=== PATIENT | male | born 1940 | race Caucasian/White ===

== ENCOUNTER → 2017-07-21 | Outpatient (REF) | payer MEDICARE, BC ==
[2017-07-21 21:32] LABS: ALBUMIN 3.9 GM/DL (3.2-5.2); ALBUMIN/GLOBULIN RATIO 1.22 (1.00-1.93); BILIRUBIN,TOTAL 1.4 MG/DL (0.2-1.0); CALCIUM LEVEL 9.2 MG/DL (8.8-10.2); CREATININE FOR GFR 1.31 MG/DL (0.70-1.30); GLOMERULAR FILTRATION RATE 56.3 (>42); POTASSIUM SERUM 4.4 MEQ/L (3.5-5.1); TOTAL PROTEIN 7.1 GM/DL (6.4-8.2); URIC ACID 7.3 MG/DL (3.5-7.2)
== END ==
LOC: M SFHCCLAY 10:25
PROVIDERS: ATTEND Family Medicine
DX: M10.9 Gout, unspecified (principal); I10 Essential (primary) hypertension; E78.2 Mixed hyperlipidemia; Z23 Encounter for immunization
CPT/HCPCS: 80053; 80061; 84550; 90662; G0008; G0463

== ENCOUNTER → 2018-03-16 | Outpatient (REF) | payer MEDICARE, BC ==
[2018-03-16 16:36] LABS: APPEARANCE, URINE TURBID (CLEAR); BACTERIA, URINE AUTO 1+ (NEGATIVE); BILIRUBIN, URINE AUTO NEGATIVE (NEGATIVE); BLOOD, URINE BLOOD NEGATIVE (NEGATIVE); COLOR, URINE AMBER (YELLOW); GLUCOSE, URINE (UA) AUTO NEGATIVE (NEGATIVE); KETONE, URINE AUTO NEGATIVE (NEGATIVE); LEUKOCYTE ESTERASE, URINE AUTO 1+ (NEGATIVE); MUCUS, URINE SMALL (NEGATIVE); NITRITE, URINE AUTO NEGATIVE (NEGATIVE); PROTEIN, URINE AUTO NEGATIVE (NEGATIVE); RBC, URINE AUTO 2 /HPF (0-3); SQUAMOUS EPITHELIAL CELL UR AU 1 /HPF (0-6); UROBILINOGEN, URINE AUTO 0.2 mg/dL (0.0-2.0); WBC, URINE AUTO 6 /HPF (0-3)
== END ==
LOC: M SFHCCLAY 09:45
DX: N30.00 Acute cystitis without hematuria (principal)
CPT/HCPCS: 81001

== ENCOUNTER → 2018-07-27 | Outpatient (REF) | payer MEDICARE, BC ==
[2018-07-27 17:21] LABS: ALBUMIN 3.9 GM/DL (3.2-5.2); ALBUMIN/GLOBULIN RATIO 1.05 (1.00-1.93); ALKALINE PHOSPHATASE 85 U/L (45-117); ALT/SGPT 28 U/L (12-78); ANION GAP 6 MEQ/L (8-16); AST/SGOT 33 U/L (7-37); BILIRUBIN,TOTAL 1.4 MG/DL (0.2-1.0); BLOOD UREA NITROGEN 16 MG/DL (7-18); CALCIUM LEVEL 9.2 MG/DL (8.8-10.2); CARBON DIOXIDE LEVEL 26 MEQ/L (21-32); CHLORIDE LEVEL 108 MEQ/L (98-107); CHOLESTEROL LEVEL 211 MG/DL (<200); CHOLESTEROL RISK RATIO 4.137 (<5); CREATININE FOR GFR 1.27 MG/DL (0.70-1.30); GLOMERULAR FILTRATION RATE 58.2 (>42); GLUCOSE, FASTING 96 MG/DL (70-100); HDL CHOLESTEROL 51 MG/DL (>40); LDL CHOLESTEROL 115 MG/DL (<100); NON-HDL-C 160 MG/DL; POTASSIUM SERUM 4.6 MEQ/L (3.5-5.1); SODIUM LEVEL 140 MEQ/L (136-145); TOTAL PROTEIN 7.6 GM/DL (6.4-8.2); TRIGLYCERIDES LEVEL 226 MG/DL (<150); URIC ACID 7.2 MG/DL (3.5-7.2)
== END ==
LOC: M SFHCCLAY 11:28
DX: I10 Essential (primary) hypertension (principal); E78.2 Mixed hyperlipidemia; M10.9 Gout, unspecified; Z23 Encounter for immunization
CPT/HCPCS: 84550

== ENCOUNTER → 2019-08-08 | Outpatient (REF) | payer MEDICARE, BC ==
[2019-08-08 12:37] LABS: ALBUMIN 3.8 GM/DL (3.2-5.2); BILIRUBIN,TOTAL 1.7 MG/DL (0.2-1.0); CHOLESTEROL RISK RATIO 3.278 (<5); CREATININE FOR GFR 1.31 MG/DL (0.70-1.30); POTASSIUM SERUM 4.1 MEQ/L (3.5-5.1); TOTAL PROTEIN 7.3 GM/DL (6.4-8.2)
== END ==
LOC: M SFHCCLAY 08:41
PROVIDERS: ATTEND Family Medicine
DX: I10 Essential (primary) hypertension (principal); E78.2 Mixed hyperlipidemia; M10.9 Gout, unspecified

== ENCOUNTER → 2020-03-20 | Outpatient (CLI) | payer MEDICARE, BC ==
--- NOTE | 2020-03-20 12:13 | REP ---
Clinical: Abdominal pain. Technique: Real time pham scale ultrasound examination using curved array transducer. Findings: The liver demonstrates mild fatty infiltration without focal hepatic lesion identified. The pancreas is incompletely evaluated due to interposed bowel gas but visualized portions appear normal. Evidence of prior cholecystectomy. No biliary ductal dilatation is appreciated and the common bile duct measures 4.4 mm diameter. The right kidney measures 11.7 x 4.6 x 5.5 cm without hydronephrosis but demonstrates few scattered cysts measuring up to 1.9 cm. No ascites in the visualized right upper quadrant. Impression: 1. Hepatic steatosis. 2. Renal cysts.
== END ==
LOC: M PLAIMG 09:47
PROVIDERS: ATTEND Family Medicine
DX: R10.9 Unspecified abdominal pain (principal); K76.0 Fatty (change of) liver, not elsewhere classified; N28.1 Cyst of kidney, acquired

== ENCOUNTER → 2020-03-20 | Outpatient (CLI) | payer MEDICARE, BC ==
--- NOTE | 2020-03-20 10:54 | REPPI ---
Clinical: Lower chest and abdominal pain. Comparison: 09/14/2005. Findings: Mediastinum and cardiac silhouette are stable. Lung chatman demonstrate chronic-appearing interstitial changes. No focal consolidation, effusion, or pneumothorax. No evidence for free air below diaphragm. Skeletal structures are intact. Impression: Chronic stable changes. No acute cardiopulmonary process appreciated. Electronically Signed by Pk Calderon MD 03/20/2020 10:46 A
== END ==
LOC: M PLAIMG 10:37
PROVIDERS: ATTEND Family Medicine
DX: R10.9 Unspecified abdominal pain (principal)

== ENCOUNTER → 2020-10-08 | Outpatient (REF) | payer MEDICARE, BC ==
[2020-10-08 15:50] LABS: HEMATOCRIT 43.7 % (42.0-52.0); HEMOGLOBIN 13.9 g/dl (13.5-17.5); MEAN CORPUSCULAR HEMOGLOBIN 28.7 pg (27.0-33.0); MEAN CORPUSCULAR HGB CONC 31.8 g/dl (32.0-36.5); MEAN CORPUSCULAR VOLUME 90.3 fl (80.0-96.0); PLATELET COUNT, AUTOMATED 210 10^3/uL (150-450); RED BLOOD COUNT 4.84 10^6/uL (4.30-6.10); WHITE BLOOD COUNT 5.9 10^3/uL (4.0-10.0)
[2020-10-08 16:24] LABS: BILIRUBIN,TOTAL 1.4 MG/DL (0.2-1.0); CALCIUM LEVEL 9.8 MG/DL (8.8-10.2); CHOLESTEROL RISK RATIO 4.568 (<5); CREATININE FOR GFR 1.29 MG/DL (0.70-1.30); GLOMERULAR FILTRATION RATE 56.9 (>35); POTASSIUM SERUM 4.4 MEQ/L (3.5-5.1); TOTAL PROTEIN 7.4 GM/DL (6.4-8.2); URIC ACID 6.7 MG/DL (3.5-7.2)
== END ==
LOC: M SFHCCLAY 13:41
PROVIDERS: ATTEND Family Medicine
DX: E78.2 Mixed hyperlipidemia (principal); M10.9 Gout, unspecified; I10 Essential (primary) hypertension
CPT/HCPCS: 80053; 80061; 84550; 85027; G0463

== ENCOUNTER → 2021-06-06 | Outpatient (REF) | payer MEDICARE, BC ==
[2021-06-06 17:19] LABS: CHOLESTEROL RISK RATIO 2.457 (<5)
== END ==
LOC: M SFHCCLAY 10:07
PROVIDERS: ATTEND Family Medicine
DX: E78.2 Mixed hyperlipidemia (principal)

== ENCOUNTER 2021-11-14 04:08 | Inpatient (IN) | payer MEDICARE, BC ==
[~2021-11-14] VITALS: Ht 182.9 cm; Wt 89.9 kg
[2021-11-14 04:46] LABS: BASO % 0.2 % (0.0-1.0); EOS % 0.2 % (0.0-3.0); HEMATOCRIT 33.9 % (42.0-52.0); HEMOGLOBIN 11.1 g/dl (13.5-17.5); LYMPH # 0.9 10^3/uL (1.5-5.0); LYMPH % 7.1 % (24.0-44.0); MEAN CORPUSCULAR HEMOGLOBIN 28.2 pg (27.0-33.0); MEAN CORPUSCULAR HGB CONC 32.7 g/dl (32.0-36.5); MONO % 8.2 % (2.0-8.0); NEUTROPHILS # 10.3 10^3/uL (1.5-8.5); NEUTROPHILS % 83.4 % (36.0-66.0); PLATELET COUNT, AUTOMATED 260 10^3/uL (150-450); RED BLOOD COUNT 3.94 10^6/uL (4.30-6.10); WHITE BLOOD COUNT 12.4 10^3/uL (4.0-10.0)
[2021-11-14 05:08] LABS: MB/CK RELATIVE INDEX 1.34 (< OR =4)
[2021-11-14 05:13] LABS: ALBUMIN 2.4 GM/DL (3.2-5.2); ALT/SGPT 46 U/L (12-78); BILIRUBIN,DIRECT 0.5 MG/DL (0.0-0.2); BILIRUBIN,TOTAL 2.2 MG/DL (0.2-1.0); BLOOD UREA NITROGEN 14 MG/DL (7-18); CALCIUM LEVEL 7.8 MG/DL (8.8-10.2); CARBON DIOXIDE LEVEL 22 MEQ/L (21-32); CHLORIDE LEVEL 110 MEQ/L (98-107); CREATININE FOR GFR 1.22 MG/DL (0.70-1.30); FREE T4 1.69 NG/DL (0.76-1.46); GLOMERULAR FILTRATION RATE > 60.0 (>35); GLUCOSE, FASTING 123 MG/DL (70-100); LIPASE 693 U/L (73-393); POTASSIUM SERUM 3.9 MEQ/L (3.5-5.1); SODIUM LEVEL 141 MEQ/L (136-145); TOTAL PROTEIN 7.2 GM/DL (6.4-8.2)
[2021-11-14] MEDS ORDERED: ISOVUE-370 76% 100ML VIAL As Ordered ONE ×2 (06:26→09:38)
[2021-11-14 06:36] LABS: MB/CK RELATIVE INDEX 1.55 (< OR =4)
[2021-11-14 06:48] LABS: BILIRUBIN, URINE MANUAL NEGATIVE (NEGATIVE); GLUCOSE, URINE (UA) MANUAL NEGATIVE (NEGATIVE); KETONE, URINE MANUAL NEGATIVE (NEGATIVE); UROBILINOGEN, URINE MANUAL NORMAL (NORMAL)
[2021-11-14 07:03] LABS: BACTERIA, URINE LARGE AMOUNT; RBC, URINE TNTC /hpf (0-3); SQUAMOUS EPITHELIAL CELL URINE LARGE AMOUNT /hpf (SMALL AMT)
[2021-11-14] MEDS ORDERED: cefTRIAXone SOD 2 GM in D5W MINI-BAG PLUS 50 ML IV ONE (07:25)
[2021-11-14 08:06] LABS: BILIRUBIN, URINE MANUAL NEGATIVE (NEGATIVE); GLUCOSE, URINE (UA) MANUAL NEGATIVE (NEGATIVE); KETONE, URINE MANUAL NEGATIVE (NEGATIVE); UROBILINOGEN, URINE MANUAL NORMAL (NORMAL)
[2021-11-14] MEDS ORDERED: LIDO1PAD TOP (08:08)
[2021-11-14] MEDS ORDERED: FINA5TAB2 PO (08:08)
[2021-11-14] MEDS ORDERED: LISI5TAB11 PO (08:08)
[2021-11-14] MEDS ORDERED: ATOR40TA75 PO (08:08)
[2021-11-14] MEDS ORDERED: CEPH500C PO (08:08)
[2021-11-14] MEDS ORDERED: ALLO300T2 PO (08:09)
[2021-11-14] MEDS ORDERED: HOME MED LIST COMPLETE! XX SCH (08:10)
[2021-11-14 08:19] LABS: BACTERIA, URINE LARGE AMOUNT; RBC, URINE TNTC /hpf (0-3); SQUAMOUS EPITHELIAL CELL URINE SMALL AMOUNT /hpf (SMALL AMT)
[2021-11-14] MEDS ORDERED: hydrALAZINE 20MG/ML 1ML VIAL (J0360 PER 20MG) IV PRN (08:35)
[2021-11-14] MEDS: LIDOCAINE 5% (LIDODERM) PATCH TOP SCH (10:34)
[2021-11-14 16:36] LABS: INR 1.12; PROTHROMBIN TIME 14.8 SECONDS (12.7-14.5)
[2021-11-14 16:37] LABS: PARTIAL THROMBOPLASTIN TIME 34.9 SECONDS (25.9-37.0)
[2021-11-14] MEDS: allopurinoL 300 MG TAB PO SCH (21:00)
[2021-11-14] MEDS: ATORVASTATIN 20 MG TAB PO SCH (21:00)
[2021-11-14] MEDS: **NOTE PATIENT COMMENT** MISC XX SCH (21:00)
[2021-11-14] MEDS: FINASTERIDE 5 MG TAB PO SCH (21:01)
[2021-11-15 07:12] LABS: HEMATOCRIT 33.8 % (42.0-52.0); MEAN CORPUSCULAR HEMOGLOBIN 28.4 pg (27.0-33.0); MEAN CORPUSCULAR HGB CONC 32.5 g/dl (32.0-36.5); MEAN CORPUSCULAR VOLUME 87.3 fl (80.0-96.0); PLATELET COUNT, AUTOMATED 271 10^3/uL (150-450); RED BLOOD COUNT 3.87 10^6/uL (4.30-6.10); WHITE BLOOD COUNT 7.8 10^3/uL (4.0-10.0)
[2021-11-15 07:28] LABS: BLOOD UREA NITROGEN 15 MG/DL (7-18); CALCIUM LEVEL 7.8 MG/DL (8.8-10.2); CARBON DIOXIDE LEVEL 24 MEQ/L (21-32); CHLORIDE LEVEL 110 MEQ/L (98-107); CREATININE FOR GFR 1.07 MG/DL (0.70-1.30); GLOMERULAR FILTRATION RATE > 60.0 (>35); GLUCOSE, FASTING 112 MG/DL (70-100); POTASSIUM SERUM 3.4 MEQ/L (3.5-5.1); SODIUM LEVEL 140 MEQ/L (136-145)
[2021-11-15] MEDS: **NOTE PATIENT COMMENT** MISC XX SCH (07:37)
[2021-11-15] MEDS: LIDOCAINE 5% (LIDODERM) PATCH TOP SCH (10:32)
[2021-11-15] MEDS: ENOXAPARIN 40MG/0.4ML SYRINGE (J1650 PER 10MG) SC SCH (10:34)
[2021-11-15] MEDS: cefTRIAXone SOD 1 GM in D5W MINI-BAG PLUS 50 ML IV SCH (10:34)
[2021-11-15] MEDS: ATORVASTATIN 20 MG TAB PO SCH (21:15)
[2021-11-15] MEDS: FINASTERIDE 5 MG TAB PO SCH (21:15)
[2021-11-15] MEDS: allopurinoL 300 MG TAB PO SCH (21:16)
[2021-11-15] MEDS: lisinopriL 5 MG TAB PO SCH (21:16)
[2021-11-16] VITALS (8 sets, daily range): BP systolic 129–145; BP diastolic 65–94
[2021-11-16 06:05] LABS: HEMATOCRIT 35.5 % (42.0-52.0); MEAN CORPUSCULAR HEMOGLOBIN 28.1 pg (27.0-33.0); MEAN CORPUSCULAR VOLUME 90.8 fl (80.0-96.0); PLATELET COUNT, AUTOMATED 308 10^3/uL (150-450); RED BLOOD COUNT 3.91 10^6/uL (4.30-6.10); WHITE BLOOD COUNT 7.8 10^3/uL (4.0-10.0)
[2021-11-16 06:25] LABS: BLOOD UREA NITROGEN 16 MG/DL (7-18); CALCIUM LEVEL 8.3 MG/DL (8.8-10.2); CARBON DIOXIDE LEVEL 20 MEQ/L (21-32); CHLORIDE LEVEL 108 MEQ/L (98-107); CREATININE FOR GFR 1.21 MG/DL (0.70-1.30); GLOMERULAR FILTRATION RATE > 60.0 (>35); GLUCOSE, FASTING 131 MG/DL (70-100); SODIUM LEVEL 136 MEQ/L (136-145)
[2021-11-16] MEDS: ACETAMINOPHEN TAB 650MG DOSE (2X325MG) PO PRN ×2 (06:45→16:44)
[2021-11-16] MEDS ORDERED: POTASSIUM CHLORIDE 10MEQ SR TABLET PO ONE ×2 (07:20→12:00)
[2021-11-16] MEDS: LIDOCAINE 5% (LIDODERM) PATCH TOP SCH (07:59)
[2021-11-16] MEDS: ENOXAPARIN 40MG/0.4ML SYRINGE (J1650 PER 10MG) SC SCH (07:59)
[2021-11-16 08:17] LABS: MAGNESIUM LEVEL 2.1 MG/DL (1.8-2.4)
[2021-11-16] MEDS: cefTRIAXone SOD 1 GM in D5W MINI-BAG PLUS 50 ML IV SCH (10:28)
[2021-11-16] MEDS ORDERED: traMADol 50 MG TAB PO PRN (11:40)
[2021-11-16 18:17] LABS: CALCIUM LEVEL 7.9 MG/DL (8.8-10.2); CREATININE FOR GFR 1.23 MG/DL (0.70-1.30); POTASSIUM SERUM 3.7 MEQ/L (3.5-5.1)
[2021-11-16] MEDS: allopurinoL 300 MG TAB PO SCH (20:18)
[2021-11-16] MEDS: lisinopriL 5 MG TAB PO SCH (20:18)
[2021-11-16] MEDS: FINASTERIDE 5 MG TAB PO SCH (20:19)
[2021-11-16] MEDS: ATORVASTATIN 20 MG TAB PO SCH (20:19)
[2021-11-17] MEDS: ACETAMINOPHEN TAB 650MG DOSE (2X325MG) PO PRN (01:10)
[2021-11-17 04:00] VITALS: BP 121/84
[2021-11-17 06:04] LABS: HEMATOCRIT 31.1 % (42.0-52.0); HEMOGLOBIN 9.9 g/dl (13.5-17.5); MEAN CORPUSCULAR HEMOGLOBIN 28.4 pg (27.0-33.0); MEAN CORPUSCULAR HGB CONC 31.8 g/dl (32.0-36.5); MEAN CORPUSCULAR VOLUME 89.1 fl (80.0-96.0); PLATELET COUNT, AUTOMATED 346 10^3/uL (150-450); RED BLOOD COUNT 3.49 10^6/uL (4.30-6.10); WHITE BLOOD COUNT 5.8 10^3/uL (4.0-10.0)
[2021-11-17 06:15] LABS: BLOOD UREA NITROGEN 16 MG/DL (7-18); CARBON DIOXIDE LEVEL 20 MEQ/L (21-32); CHLORIDE LEVEL 114 MEQ/L (98-107); CREATININE FOR GFR 1.08 MG/DL (0.70-1.30); GLOMERULAR FILTRATION RATE > 60.0 (>35); GLUCOSE, FASTING 108 MG/DL (70-100); POTASSIUM SERUM 3.8 MEQ/L (3.5-5.1); SODIUM LEVEL 139 MEQ/L (136-145)
[2021-11-17 07:31] VITALS: BP 143/75
[2021-11-17] MEDS: ENOXAPARIN 40MG/0.4ML SYRINGE (J1650 PER 10MG) SC SCH (08:11)
[2021-11-17] MEDS: LIDOCAINE 5% (LIDODERM) PATCH TOP SCH (08:11)
[2021-11-17] MEDS: cefTRIAXone SOD 1 GM in D5W MINI-BAG PLUS 50 ML IV SCH (10:36)
[2021-11-17] MEDS ORDERED: CEFD300C41 PO (10:42)
[2021-11-17] MEDS ORDERED: ACET650T15 PO (10:42)
[2021-11-17 12:00] VITALS: BP 135/78
== END 2021-11-17 13:18 | disposition home health service (06) | DRG 872 ==
LOC: M ED 04:08 → M ED INP 08:27 → ENRESERV 11-15 13:31 → M PCU 11-15 15:12
PROVIDERS: ADMIT Internal Medicine; ATTEND Internal Medicine
DX: A41.9 Sepsis, unspecified organism (principal); N10 Acute pyelonephritis; I10 Essential (primary) hypertension; E78.5 Hyperlipidemia, unspecified; M10.9 Gout, unspecified; Z90.49 Acquired absence of other specified parts of digestive tract; Z98.49 Cataract extraction status, unspecified eye; Z79.899 Other long term (current) drug therapy; Z20.822 Contact with and (suspected) exposure to COVID-19; Z96.0 Presence of urogenital implants

== ENCOUNTER → 2021-11-19 | Outpatient (REF) | payer MEDICARE, BC ==
[~2021-11-19] MED LIST: ACET650T15 PO; ALLO300T2 PO; ATOR40TA75 PO; CEFD300C41 PO; CEPH500C PO; FINA5TAB2 PO; LIDO1PAD TOP; LISI5TAB11 PO
[2021-11-19 17:08] LABS: BASO # 0.1 10^3/uL (0.0-0.2); EOS # 0.3 10^3/uL (0.0-0.5); EOS % 5.2 % (0.0-3.0); HEMATOCRIT 36.1 % (42.0-52.0); HEMOGLOBIN 11.3 g/dl (13.5-17.5); LYMPH # 1.1 10^3/uL (1.5-5.0); LYMPH % 20.7 % (24.0-44.0); MEAN CORPUSCULAR HEMOGLOBIN 27.9 pg (27.0-33.0); MEAN CORPUSCULAR HGB CONC 31.3 g/dl (32.0-36.5); MEAN CORPUSCULAR VOLUME 89.1 fl (80.0-96.0); MONO # 0.5 10^3/uL (0.0-0.8); MONO % 9.9 % (2.0-8.0); NEUTROPHILS # 3.3 10^3/uL (1.5-8.5); NEUTROPHILS % 62.6 % (36.0-66.0); PLATELET COUNT, AUTOMATED 458 10^3/uL (150-450); RED BLOOD COUNT 4.05 10^6/uL (4.30-6.10); WHITE BLOOD COUNT 5.2 10^3/uL (4.0-10.0)
[2021-11-19 17:12] LABS: BLOOD UREA NITROGEN 15 MG/DL (7-18); CALCIUM LEVEL 8.7 MG/DL (8.8-10.2); CARBON DIOXIDE LEVEL 23 MEQ/L (21-32); CHLORIDE LEVEL 113 MEQ/L (98-107); CREATININE FOR GFR 1.13 MG/DL (0.70-1.30); GLOMERULAR FILTRATION RATE > 60.0 (>35); GLUCOSE, FASTING 128 MG/DL (70-100); POTASSIUM SERUM 5.4 MEQ/L (3.5-5.1); SODIUM LEVEL 139 MEQ/L (136-145)
== END ==
LOC: M SFHCCLAY 11:24
PROVIDERS: ATTEND Family Medicine
DX: I11.0 Hypertensive heart disease with heart failure (principal); Z96.0 Presence of urogenital implants

== ENCOUNTER → 2021-11-28 | Outpatient (REF) | payer MEDICARE, BC ==
[~2021-11-28] MED LIST changes: +BACT800T5 PO; +LEVO250T3 PO
[2021-11-28 17:41] LABS: APPEARANCE, URINE CLOUDY (CLEAR); BACTERIA, URINE AUTO 1+ (NEGATIVE); BILIRUBIN, URINE AUTO NEGATIVE (NEGATIVE); BLOOD, URINE BLOOD 2+ (NEGATIVE); COLOR, URINE YELLOW (YELLOW); GLUCOSE, URINE (UA) AUTO NEGATIVE (NEGATIVE); KETONE, URINE AUTO NEGATIVE (NEGATIVE); LEUKOCYTE ESTERASE, URINE AUTO 2+ (NEGATIVE); MUCUS, URINE SMALL (NEGATIVE); NITRITE, URINE AUTO NEGATIVE (NEGATIVE); PROTEIN, URINE AUTO 2+ mg/dL (NEGATIVE); RBC, URINE AUTO 33 /HPF (0-3); SPECIFIC GRAVITY URINE AUTO 1.018 (1.002-1.035); SQUAMOUS EPITHELIAL CELL UR AU 3 /HPF (0-6); UROBILINOGEN, URINE AUTO 0.2 mg/dL (0.0-2.0); WBC, URINE AUTO 38 /HPF (0-3)
== END ==
LOC: M SMT 16:32
PROVIDERS: ATTEND Physician Assistant
DX: N20.1 Calculus of ureter (principal)

== ENCOUNTER → 2021-12-08 | Outpatient (REF) | payer MEDICARE, BC ==
[~2021-12-08] MED LIST changes: -BACT800T5 PO; -LEVO250T3 PO
[2021-12-08 16:12] LABS: BASO # 0.1 10^3/uL (0.0-0.2); BASO % 0.6 % (0.0-1.0); EOS # 0.2 10^3/uL (0.0-0.5); EOS % 2.6 % (0.0-3.0); HEMOGLOBIN 11.6 g/dl (13.5-17.5); LYMPH # 2.2 10^3/uL (1.5-5.0); LYMPH % 27.5 % (24.0-44.0); MEAN CORPUSCULAR HGB CONC 31.4 g/dl (32.0-36.5); MEAN CORPUSCULAR VOLUME 89.2 fl (80.0-96.0); MONO # 0.8 10^3/uL (0.0-0.8); MONO % 9.3 % (2.0-8.0); NEUTROPHILS # 4.8 10^3/uL (1.5-8.5); NEUTROPHILS % 59.6 % (36.0-66.0); PLATELET COUNT, AUTOMATED 255 10^3/uL (150-450); RED BLOOD COUNT 4.15 10^6/uL (4.30-6.10); WHITE BLOOD COUNT 8.1 10^3/uL (4.0-10.0)
[2021-12-08 16:16] LABS: APPEARANCE, URINE CLOUDY (CLEAR); BACTERIA, URINE AUTO NEGATIVE (NEGATIVE); BILIRUBIN, URINE AUTO NEGATIVE (NEGATIVE); BLOOD, URINE BLOOD 3+ (NEGATIVE); COLOR, URINE YELLOW (YELLOW); GLUCOSE, URINE (UA) AUTO NEGATIVE (NEGATIVE); KETONE, URINE AUTO NEGATIVE (NEGATIVE); LEUKOCYTE ESTERASE, URINE AUTO TRACE (NEGATIVE); MUCUS, URINE SMALL (NEGATIVE); NITRITE, URINE AUTO NEGATIVE (NEGATIVE); PROTEIN, URINE AUTO 2+ mg/dL (NEGATIVE); RBC, URINE AUTO TNTC /HPF (0-3); SPECIFIC GRAVITY URINE AUTO 1.013 (1.002-1.035); SQUAMOUS EPITHELIAL CELL UR AU 8 /HPF (0-6); TRANSITIONAL EPITHELIAL AUTO 1 /HPF; UROBILINOGEN, URINE AUTO 0.2 mg/dL (0.0-2.0); WBC, URINE AUTO 43 /HPF (0-3)
[2021-12-08 16:35] LABS: CALCIUM LEVEL 9.1 MG/DL (8.8-10.2); CREATININE FOR GFR 1.23 MG/DL (0.70-1.30)
== END ==
LOC: M SFHCCLAY 10:04
PROVIDERS: ATTEND Family Medicine
DX: Z01.818 Encounter for other preprocedural examination (principal); Z96.0 Presence of urogenital implants; Z79.899 Other long term (current) drug therapy

== ENCOUNTER → 2021-12-12 | Outpatient (CLI) | payer MEDICARE, BC | LOC: M LABSMTC 10:54 | PROVIDERS: ATTEND Anesthesiology | DX: Z01.812 Encounter for preprocedural laboratory examination (principal); Z20.828 Contact with and (suspected) exposure to other viral communicable diseases ==

== ENCOUNTER 2021-12-17 13:16 | Day surgery (SDC) | payer MEDICARE, BC ==
[~2021-12-17] VITALS: Ht 182.9 cm; Wt 90.6 kg
[~2021-12-17 13:16] MED LIST changes: +CIPROFLOXACIN 400 MG in IV 1 EA IV ONE; +LIDOCAINE 1% MDV 20ML VIAL SQ PRN; +LR 1,000 ML IV ONE
[2021-12-17] MEDS ORDERED: LEVO250T3 PO (13:31)
[2021-12-17] MEDS ORDERED: LIDOCAINE 2% 100MG/5ML SDV (FOR ANES.) As Ordered ONE (13:33)
[2021-12-17] MEDS ORDERED: dexameTHASONE 4 MG/ML 1ML VIAL (J1100 PER 1MG) As Ordered ONE (13:33)
[2021-12-17] MEDS ORDERED: fentaNYL 100 MCG/2 ML INJECTION As Ordered ONE (13:33)
[2021-12-17] MEDS ORDERED: propofoL 200 MG/20 ML VIAL As Ordered ONE (13:33)
[2021-12-17] MEDS ORDERED: ONDANSETRON 4MG/2ML VIAL As Ordered ONE (13:33)
[2021-12-17] MEDS ORDERED: diphenhydrAMINE 50MG/ML VIAL (J1200) IV PRN (13:50)
[2021-12-17] MEDS ORDERED: cefTRIAXone SOD 1 GM in D5W MINI-BAG PLUS 50 ML IV ONE (13:50)
[2021-12-17] MEDS ORDERED: CONRAY-60 60% 50ML VIAL (Q9961) As Ordered ONE (15:47)
[2021-12-17] MEDS ORDERED: ACETAMINOPHEN 1000MG 100ML IV BTL (OFIRMEV) (J0131 PER 10MG) As Ordered ONE (16:25)
[2021-12-17] MEDS ORDERED: PHENYLephrine 500MCG 5ML (100MCG/ML) SYRINGE As Ordered ONE (16:54)
[2021-12-17] MEDS ORDERED: ePHEDrine SULFATE 25 MG/5 ML(5MG/ML) SYRINGE As Ordered ONE (16:55)
[2021-12-17] MEDS ORDERED: fentaNYL 100 MCG/2 ML INJECTION IV PRN (17:30)
[2021-12-17] MEDS ORDERED: LR 1,000 ML IV SCH (17:30)
[2021-12-17] MEDS ORDERED: ONDANSETRON 4MG/2ML VIAL IV PRN (17:30)
[2021-12-17] MEDS ORDERED: BACT800T5 PO (17:31)
[2021-12-17] MEDS ORDERED: PERCOCET 5MG/325MG TAB PO PRN (17:40)
[2021-12-17] MEDS ORDERED: ACETAMINOPHEN TAB 650MG DOSE (2X325MG) PO PRN (17:40)
[2021-12-17 18:10] VITALS: BP 151/72
== END 2021-12-17 18:32 | disposition home or self-care (01) ==
LOC: M SDC 13:16
PROVIDERS: ATTEND Urology
DX: N20.0 Calculus of kidney (principal); I10 Essential (primary) hypertension; N40.0 Benign prostatic hyperplasia without lower urinary tract symptoms; Z79.899 Other long term (current) drug therapy; Z88.1 Allergy status to other antibiotic agents
CPT/HCPCS: 52356; 74420; 82365; C1769; C1894; C2617; J0131; J0696; J1100; J2370; J2405; J3010; Q9961

== ENCOUNTER → 2022-01-12 | Outpatient (REF) | payer MEDICARE, BC ==
[~2022-01-12] MED LIST changes: +BACT800T5 PO; -CIPROFLOXACIN 400 MG in IV 1 EA IV ONE; +LEVO250T3 PO; -LIDOCAINE 1% MDV 20ML VIAL SQ PRN; -LR 1,000 ML IV ONE
[2022-01-12 16:22] LABS: ALBUMIN 3.6 GM/DL (3.2-5.2); BLOOD UREA NITROGEN 15 MG/DL (7-18); CALCIUM LEVEL 9.9 MG/DL (8.8-10.2); CARBON DIOXIDE LEVEL 23 MEQ/L (21-32); CHLORIDE LEVEL 113 MEQ/L (98-107); CREATININE FOR GFR 1.17 MG/DL (0.70-1.30); GLOMERULAR FILTRATION RATE > 60.0 (>35); GLUCOSE, FASTING 102 MG/DL (70-100); NT-PRO BNP 684 PG/ML (<450); POTASSIUM SERUM 4.2 MEQ/L (3.5-5.1); SODIUM LEVEL 142 MEQ/L (136-145)
== END ==
LOC: M LABDRAWC 15:41
PROVIDERS: ATTEND Internal Medicine Cardiovascular Disease
DX: I50.32 Chronic diastolic (congestive) heart failure (principal)

== ENCOUNTER → 2022-04-08 | Outpatient (REF) | payer MEDICARE, BC ==
[2022-04-08 16:53] LABS: CALCIUM LEVEL 9.4 MG/DL (8.8-10.2); CREATININE FOR GFR 1.37 MG/DL (0.70-1.30); GLOMERULAR FILTRATION RATE 52.8 (>35)
== END ==
LOC: M LABDRAWC 15:45
PROVIDERS: ATTEND Physician Assistant
DX: I50.32 Chronic diastolic (congestive) heart failure (principal)

== ENCOUNTER → 2022-07-13 | Outpatient (CLI) | payer MEDICARE, BC ==
[~2022-07-13] MED LIST changes: +LEVO1TAB38 PO; -LEVO250T3 PO
== END ==
LOC: M RAD 16:31
PROVIDERS: ATTEND Urology
DX: N20.0 Calculus of kidney (principal)

== ENCOUNTER → 2023-01-18 | Outpatient (REF) | payer MEDICARE, BC ==
[2023-01-18 18:40] LABS: ALBUMIN 3.6 G/DL (3.2-5.2); BILIRUBIN,TOTAL 1.5 MG/DL (0.3-1.2); CALCIUM LEVEL 9.5 MG/DL (8.3-10.6); CHOLESTEROL RISK RATIO 3.13 (<5); CREATININE FOR GFR 1.24 MG/DL (0.70-1.30); GLOMERULAR FILTRATION RATE 59.3 (>35); HDL CHOLESTEROL 54.2 MG/DL (>40); LDL CHOLESTEROL 85.4 MG/DL (<100); NON-HDL-C 115.8 MG/DL; TOTAL PROTEIN 7.2 G/DL (5.7-8.2)
== END ==
LOC: M LABDRAWC 17:04
PROVIDERS: ATTEND Physician Assistant
DX: I50.32 Chronic diastolic (congestive) heart failure (principal); E78.00 Pure hypercholesterolemia, unspecified

== ENCOUNTER → 2023-04-05 | Outpatient (CLI) | payer MEDICARE, BC | LOC: M WUC 11:33 | PROVIDERS: ATTEND Family Medicine | DX: J18.9 Pneumonia, unspecified organism (principal); S22.41XS Multiple fractures of ribs, right side, sequela ==

== ENCOUNTER → 2023-07-13 | Outpatient (REF) | payer MEDICARE, BC ==
[~2023-07-13] MED LIST changes: -CEFD300C41 PO; +CEFD300C42 PO
[2023-07-13 18:38] LABS: HEMATOCRIT 44.4 % (42.0-52.0); MEAN CORPUSCULAR HEMOGLOBIN 28.8 pg (27.0-33.0); MEAN CORPUSCULAR HGB CONC 31.5 g/dl (32.0-36.5); MEAN CORPUSCULAR VOLUME 91.4 fl (80.0-96.0); PLATELET COUNT, AUTOMATED 217 10^3/uL (150-450); RED BLOOD COUNT 4.86 10^6/uL (4.30-6.10)
[2023-07-13 18:58] LABS: ALBUMIN 3.8 G/DL (3.2-5.2); BILIRUBIN,TOTAL 1.7 MG/DL (0.3-1.2); CALCIUM LEVEL 10.1 MG/DL (8.3-10.6); CHOLESTEROL RISK RATIO 2.78 (<5); CREATININE FOR GFR 1.25 MG/DL (0.70-1.30); GLOMERULAR FILTRATION RATE 58.6 (>35); HDL CHOLESTEROL 59.6 MG/DL (>40); LDL CHOLESTEROL 80.8 MG/DL (<100); NON-HDL-C 106.4 MG/DL; POTASSIUM SERUM 4.6 MMOL/L (3.5-5.1); THYROID STIMULATING HORMONE 3.578 uIU/ML (0.55-4.78); TOTAL PROTEIN 7.2 G/DL (5.7-8.2)
== END ==
LOC: M SFHCCLAY 09:37
PROVIDERS: ATTEND Family Medicine
DX: Z00.00 Encounter for general adult medical examination without abnormal findings (principal); I10 Essential (primary) hypertension; D64.9 Anemia, unspecified; G56.01 Carpal tunnel syndrome, right upper limb

== ENCOUNTER 2023-07-21 12:49 | Day surgery (SDC) | payer MEDICARE, BC ==
[~2023-07-21] VITALS: Ht 182.9 cm; Wt 99.1 kg
[~2023-07-21 12:49] MED LIST changes: +INDA1.253 PO
[2023-07-21] MEDS ORDERED: ACETAMINOPHEN 1000MG 100ML IV BAG As Ordered ONE (14:10)
[2023-07-21] MEDS ORDERED: LIDOCAINE 2% 100MG/5ML SDV (FOR ANES.) As Ordered ONE (14:11)
[2023-07-21] MEDS ORDERED: propofoL 200 MG/20 ML VIAL As Ordered ONE (14:11)
[2023-07-21] MEDS ORDERED: ONDANSETRON 4MG 2ML VIAL As Ordered ONE (14:11)
[2023-07-21] MEDS ORDERED: fentaNYL 100 MCG/2 ML INJECTION As Ordered ONE (14:13)
[2023-07-21] MEDS ORDERED: ONDANSETRON 4MG 2ML VIAL IV PRN (15:10)
[2023-07-21] MEDS ORDERED: oxyCODONE 5MG TAB PO PRN (15:10)
[2023-07-21] MEDS ORDERED: fentaNYL 100 MCG/2 ML INJECTION IV PRN (15:10)
[2023-07-21 15:59] VITALS: BP 145/79; TEMP 95.1; O2SAT 98
== END 2023-07-21 18:49 | disposition home or self-care (01) ==
LOC: M SDC 12:49
PROVIDERS: ATTEND Orthopaedic Surgery Hand Surgery
DX: G56.01 Carpal tunnel syndrome, right upper limb (principal); I10 Essential (primary) hypertension; E78.00 Pure hypercholesterolemia, unspecified; M10.9 Gout, unspecified; Z79.899 Other long term (current) drug therapy; Z88.1 Allergy status to other antibiotic agents; Z88.2 Allergy status to sulfonamides
CPT/HCPCS: 29848; J0131; J0665; J1100; J2405; J3010

== ENCOUNTER → 2024-01-03 | Outpatient (REF) | payer MEDICARE, BC ==
[~2024-01-03] MED LIST changes: +CEFD1CAP9 PO; -CEFD300C42 PO
[2024-01-03 17:02] LABS: URIC ACID 6.4 MG/DL (3.7-9.2)
[2024-01-03 17:05] LABS: THYROID STIMULATING HORMONE 2.625 uIU/ML (0.55-4.78)
[2024-01-03 17:23] LABS: HEMATOCRIT 43.2 % (42.0-52.0); MEAN CORPUSCULAR HEMOGLOBIN 28.9 pg (27.0-33.0); MEAN CORPUSCULAR HGB CONC 32.4 g/dl (32.0-36.5); MEAN CORPUSCULAR VOLUME 89.3 fl (80.0-96.0); PLATELET COUNT, AUTOMATED 205 10^3/uL (150-450); RED BLOOD COUNT 4.84 10^6/uL (4.30-6.10); WHITE BLOOD COUNT 6.8 10^3/uL (4.0-10.0)
[2024-01-03 17:57] LABS: ALBUMIN 3.5 G/DL (3.2-5.2); BILIRUBIN,TOTAL 1.6 MG/DL (0.3-1.2); CALCIUM LEVEL 9.6 MG/DL (8.3-10.6); CREATININE FOR GFR 1.26 MG/DL (0.70-1.30); TOTAL PROTEIN 7.1 G/DL (5.7-8.2)
== END ==
LOC: M SFHCCLAY 10:17
PROVIDERS: ATTEND Family Medicine
DX: Z00.00 Encounter for general adult medical examination without abnormal findings (principal); I10 Essential (primary) hypertension; D64.9 Anemia, unspecified; M10.9 Gout, unspecified; G56.01 Carpal tunnel syndrome, right upper limb

== ENCOUNTER → 2024-01-07 | Outpatient (REF) | payer MEDICARE, BC ==
[2024-01-07 18:50] LABS: HEMOGLOBIN A1c 6.1 % (4.0-6.0)
== END ==
LOC: M SFHCCLAY 14:34
PROVIDERS: ATTEND Family Medicine
DX: G62.9 Polyneuropathy, unspecified (principal); Z79.899 Other long term (current) drug therapy

== ENCOUNTER → 2024-01-14 | Outpatient (CLI) | payer MEDICARE, BC | LOC: M PLAIMG 12:44 | PROVIDERS: ATTEND Physician Assistant | DX: I35.1 Nonrheumatic aortic (valve) insufficiency (principal); I34.0 Nonrheumatic mitral (valve) insufficiency; I77.810 Thoracic aortic ectasia ==

== ENCOUNTER → 2024-02-07 | Outpatient (CLI) | payer MEDICARE, BC | LOC: M CLY 11:01 | PROVIDERS: ATTEND Family Medicine | DX: M54.42 Lumbago with sciatica, left side (principal); M17.12 Unilateral primary osteoarthritis, left knee; M85.80 Other specified disorders of bone density and structure, unspecified site; M51.36 Other intervertebral disc degeneration, lumbar region ==

== ENCOUNTER → 2024-02-21 | Outpatient (CLI) | payer MEDICARE, BC | LOC: M CLY 09:07 | PROVIDERS: ATTEND Urology | DX: Z87.442 Personal history of urinary calculi (principal) ==

== ENCOUNTER → 2024-02-24 | Outpatient (CLI) | payer MEDICARE, BC | LOC: M RAD 14:33 | PROVIDERS: ATTEND Family Medicine | DX: M71.22 Synovial cyst of popliteal space [Baker], left knee (principal) ==

== ENCOUNTER → 2024-06-19 | Outpatient (REF) | payer MEDICARE, BC ==
[2024-06-19 19:29] LABS: HEMOGLOBIN A1c 6.2 % (4.0-6.0)
[2024-06-19 19:32] LABS: BLOOD UREA NITROGEN 15 MG/DL (9-23); CALCIUM LEVEL 9.8 MG/DL (8.3-10.6); CARBON DIOXIDE LEVEL 26 MMOL/L (20-31); CHLORIDE LEVEL 109 MMOL/L (98-107); CHOLESTEROL LEVEL 168 MG/DL (<200); CHOLESTEROL RISK RATIO 3.03 (<5); CREATININE FOR GFR 1.19 MG/DL (0.70-1.30); GLOMERULAR FILTRATION RATE > 60.0 (>35); GLUCOSE, FASTING 121 MG/DL (74-106); HDL CHOLESTEROL 55.4 MG/DL (>40); LDL CHOLESTEROL 81.6 MG/DL (<100); NON-HDL-C 112.6 MG/DL; SODIUM LEVEL 139 MMOL/L (136-145); TRIGLYCERIDES LEVEL 155 MG/DL (<150)
== END ==
LOC: M SFHCCLAY 13:20
PROVIDERS: ATTEND Family Medicine
DX: E78.2 Mixed hyperlipidemia (principal); I10 Essential (primary) hypertension; R73.03 Prediabetes

== ENCOUNTER → 2024-07-03 | Outpatient (CLI) | payer MEDICARE, BC | LOC: M PLAIMG 14:06 | PROVIDERS: ATTEND Physician Assistant | DX: M51.26 Other intervertebral disc displacement, lumbar region (principal); M51.27 Other intervertebral disc displacement, lumbosacral region; M47.897 Other spondylosis, lumbosacral region; M47.896 Other spondylosis, lumbar region ==

== ENCOUNTER → 2024-07-26 | Outpatient (REF) | payer MEDICARE, BC ==
[2024-07-26 17:52] LABS: APPEARANCE, URINE HAZY (CLEAR); BACTERIA, URINE AUTO NEGATIVE (NEGATIVE); BILIRUBIN, URINE AUTO NEGATIVE (NEGATIVE); BLOOD, URINE BLOOD NEGATIVE (NEGATIVE); COLOR, URINE YELLOW (YELLOW); GLUCOSE, URINE (UA) AUTO NEGATIVE (NEGATIVE); KETONE, URINE AUTO NEGATIVE (NEGATIVE); LEUKOCYTE ESTERASE, URINE AUTO 2+ (NEGATIVE); MUCUS, URINE SMALL (NEGATIVE); NITRITE, URINE AUTO NEGATIVE (NEGATIVE); PROTEIN, URINE AUTO 1+ mg/dL (NEGATIVE); RBC, URINE AUTO 1 /HPF (0-3); SPECIFIC GRAVITY URINE AUTO 1.018 (1.002-1.035); SQUAMOUS EPITHELIAL CELL UR AU 9 /HPF (0-6); UROBILINOGEN, URINE AUTO 0.2 mg/dL (0.0-2.0); WBC, URINE AUTO 12 /HPF (0-3)
== END ==
LOC: M SFHCCLAY 13:54
PROVIDERS: ATTEND Family Medicine
DX: N39.0 Urinary tract infection, site not specified (principal)

== ENCOUNTER → 2024-08-10 | Outpatient (REF) | payer MEDICARE, BC | LOC: M SFHCCLAY 16:19 | PROVIDERS: ATTEND Family Medicine | DX: N39.0 Urinary tract infection, site not specified (principal) ==

== ENCOUNTER → 2024-08-24 | Outpatient (REF) | payer MEDICARE, BC ==
[2024-08-24 17:21] LABS: AMORPHOUS SEDIMENT SMALL (NEGATIVE); APPEARANCE, URINE TURBID (CLEAR); BACTERIA, URINE AUTO 1+ (NEGATIVE); BILIRUBIN, URINE AUTO NEGATIVE (NEGATIVE); BLOOD, URINE BLOOD NEGATIVE (NEGATIVE); COLOR, URINE AMBER (YELLOW); GLUCOSE, URINE (UA) AUTO NEGATIVE (NEGATIVE); KETONE, URINE AUTO NEGATIVE (NEGATIVE); LEUKOCYTE ESTERASE, URINE AUTO 3+ (NEGATIVE); MUCUS, URINE MODERATE (NEGATIVE); NITRITE, URINE AUTO NEGATIVE (NEGATIVE); PROTEIN, URINE AUTO 1+ mg/dL (NEGATIVE); RBC, URINE AUTO 2 /HPF (0-3); SPECIFIC GRAVITY URINE AUTO 1.021 (1.002-1.035); SQUAMOUS EPITHELIAL CELL UR AU 5 /HPF (0-6); UROBILINOGEN, URINE AUTO 0.2 mg/dL (0.0-2.0); WBC, URINE AUTO 20 /HPF (0-3)
== END ==
LOC: M SFHCCLAY 12:46
PROVIDERS: ATTEND Family Medicine
DX: N39.0 Urinary tract infection, site not specified (principal)

== ENCOUNTER → 2024-09-25 | Outpatient (REF) | payer MEDICARE, BC ==
[2024-09-25 18:51] LABS: APPEARANCE, URINE HAZY (CLEAR); BACTERIA, URINE AUTO NEGATIVE (NEGATIVE); BILIRUBIN, URINE AUTO NEGATIVE (NEGATIVE); BLOOD, URINE BLOOD NEGATIVE (NEGATIVE); COLOR, URINE YELLOW (YELLOW); GLUCOSE, URINE (UA) AUTO NEGATIVE (NEGATIVE); KETONE, URINE AUTO NEGATIVE (NEGATIVE); LEUKOCYTE ESTERASE, URINE AUTO 2+ (NEGATIVE); MUCUS, URINE SMALL (NEGATIVE); NITRITE, URINE AUTO NEGATIVE (NEGATIVE); PROTEIN, URINE AUTO NEGATIVE (NEGATIVE); RBC, URINE AUTO 0 /HPF (0-3); SPECIFIC GRAVITY URINE AUTO 1.017 (1.002-1.035); SQUAMOUS EPITHELIAL CELL UR AU 3 /HPF (0-6); UROBILINOGEN, URINE AUTO 0.2 mg/dL (0.0-2.0); WBC, URINE AUTO 7 /HPF (0-3)
== END ==
LOC: M SFHCCLAY 11:35
PROVIDERS: ATTEND Physician Assistant
DX: N39.0 Urinary tract infection, site not specified (principal)

== ENCOUNTER → 2024-10-24 | Outpatient (CLI) | payer MEDICARE, BC | LOC: M PLAIMG 10:54 | PROVIDERS: ATTEND Nurse Practitioner Family | DX: R91.1 Solitary pulmonary nodule (principal); I25.10 Atherosclerotic heart disease of native coronary artery without angina pectoris; Z90.49 Acquired absence of other specified parts of digestive tract ==

== ENCOUNTER → 2024-11-09 | Outpatient (REF) | payer MEDICARE, BC ==
[2024-11-09 17:22] LABS: ALBUMIN 3.7 G/DL (3.2-5.2); BILIRUBIN,TOTAL 1.8 MG/DL (0.3-1.2); CALCIUM LEVEL 9.2 MG/DL (8.3-10.6); CHOLESTEROL RISK RATIO 3.4 (<5); CREATININE FOR GFR 1.34 MG/DL (0.70-1.30); GLOMERULAR FILTRATION RATE 53.9 (>35); HDL CHOLESTEROL 48.4 MG/DL (>40); LDL CHOLESTEROL 81.4 MG/DL (<100); NON-HDL-C 116.6 MG/DL; POTASSIUM SERUM 4.2 MMOL/L (3.5-5.1); TOTAL PROTEIN 7.4 G/DL (5.7-8.2)
[2024-11-09 17:29] LABS: APPEARANCE, URINE CLEAR (CLEAR); BACTERIA, URINE AUTO NEGATIVE (NEGATIVE); BILIRUBIN, URINE AUTO NEGATIVE (NEGATIVE); BLOOD, URINE BLOOD 1+ (NEGATIVE); COLOR, URINE YELLOW (YELLOW); GLUCOSE, URINE (UA) AUTO NEGATIVE (NEGATIVE); KETONE, URINE AUTO NEGATIVE (NEGATIVE); LEUKOCYTE ESTERASE, URINE AUTO TRACE (NEGATIVE); MUCUS, URINE SMALL (NEGATIVE); NITRITE, URINE AUTO NEGATIVE (NEGATIVE); PROTEIN, URINE AUTO NEGATIVE (NEGATIVE); RBC, URINE AUTO 2 /HPF (0-3); SPECIFIC GRAVITY URINE AUTO 1.019 (1.002-1.035); SQUAMOUS EPITHELIAL CELL UR AU 4 /HPF (0-6); UROBILINOGEN, URINE AUTO 0.2 mg/dL (0.0-2.0); WBC, URINE AUTO 12 /HPF (0-3)
== END ==
LOC: M SFHCCLAY 10:43
PROVIDERS: ATTEND Physician Assistant
DX: R73.03 Prediabetes (principal); K76.0 Fatty (change of) liver, not elsewhere classified; I11.0 Hypertensive heart disease with heart failure; G25.81 Restless legs syndrome; M10.9 Gout, unspecified; N40.2 Nodular prostate without lower urinary tract symptoms; N28.1 Cyst of kidney, acquired; N39.0 Urinary tract infection, site not specified; M17.12 Unilateral primary osteoarthritis, left knee

== ENCOUNTER → 2024-11-23 | Outpatient (REF) | payer MEDICARE, BC ==
[2024-11-23 19:53] LABS: RHEUMATOID FACTOR QUANT < 3.5 IU/ML (<14)
[2024-11-23 19:55] LABS: FOLATE 15.5 NG/ML (>5.4); VITAMIN B12 LEVEL 1053 PG/ML (211-911)
[2024-11-26 00:13] LABS: T P ELECTROPHORESIS SO 7.2 g/dL (6.1-8.1)
== END ==
LOC: M LABDRAWC 16:46
PROVIDERS: ATTEND Psychiatry & Neurology Neurology
DX: E53.8 Deficiency of other specified B group vitamins (principal); R20.2 Paresthesia of skin

== ENCOUNTER → 2024-11-28 | Outpatient (CLI) | payer MEDICARE, BC | LOC: M RAD 10:25 | PROVIDERS: ATTEND Physician Assistant | DX: K76.0 Fatty (change of) liver, not elsewhere classified (principal); Z90.49 Acquired absence of other specified parts of digestive tract; N28.1 Cyst of kidney, acquired ==

== ENCOUNTER → 2025-04-12 | Outpatient (CLI) | payer MEDICARE, BC ==
[~2025-04-12] MED LIST changes: +ACET-1515 PO; -ACET650T15 PO
== END ==
LOC: M CARPUL 15:07
PROVIDERS: ATTEND Physician Assistant
DX: I35.0 Nonrheumatic aortic (valve) stenosis (principal)

== ENCOUNTER 2025-06-04 07:35 | Observation (INO) | payer MEDICARE, BC ==
[~2025-06-04] VITALS: Ht 177.8 cm; Wt 94.0 kg
[2025-06-04] MEDS ORDERED: NITROGLYCERIN 0.3 MG SUBL TAB SL PRN (08:00)
[2025-06-04] MEDS: ASPIRIN 81 MG CHEWABLE TABLET PO ONE (08:17)
[2025-06-04 08:18] LABS: BASO # 0.0 10^3/uL (0.0-0.2); BASO % 0.3 % (0.0-1.0); EOS # 0.2 10^3/uL (0.0-0.5); EOS % 2.0 % (0.0-3.0); LYMPH # 1.5 10^3/uL (1.5-5.0); LYMPH % 16.3 % (24.0-44.0); MONO # 0.9 10^3/uL (0.0-0.8); MONO % 10.4 % (2.0-8.0); NEUTROPHILS # 6.3 10^3/uL (1.5-8.5); NEUTROPHILS % 70.3 % (36.0-66.0); PLATELET COUNT, AUTOMATED 241 10^3/uL (150-450)
[2025-06-04] MEDS: NS 500 ML IV ONE ×2 (08:18→09:35)
[2025-06-04] MEDS ORDERED: NITROGLYCERIN 0.4 MG SUBL TABLET SL PRN (08:25)
[2025-06-04 08:30] LABS: INR 0.99
[2025-06-04] MEDS ORDERED: ISOVUE-370 76% 100 ML VIAL As Ordered ONE (08:35)
[2025-06-04] MEDS: ONDANSETRON 4MG 2ML VIAL IV ONE (08:36)
[2025-06-04 08:46] LABS: ALT/SGPT 17.0 U/L (7.0-40); AST/SGOT 34.0 U/L (<34); CALCIUM LEVEL 9.4 MG/DL (8.3-10.6); CARBON DIOXIDE LEVEL 24.0 MMOL/L (20-31); CHLORIDE LEVEL 105.0 MMOL/L (98-107); CK-MB VALUE MASS 2.2 NG/ML (<3.6); CREATININE FOR GFR 1.39 MG/DL (0.70-1.30); GLOMERULAR FILTRATION RATE 49.4 (>35); POTASSIUM SERUM 4.1 MMOL/L (3.5-5.1); SODIUM LEVEL 142.0 MMOL/L (136-145)
[2025-06-04 08:48] LABS: FREE T4 1.04 NG/DL (0.89-1.76)
[2025-06-04] MEDS: diphenhydrAMINE 50 MG/ML VIAL IV STA (09:10)
[2025-06-04] MEDS: FAMOTIDINE IV BAG 20 MG in IV 1 EA IV ONE (09:10)
[2025-06-04 09:18] LABS: CPK CREATINE PHOSPHOKINASE 95.0 U/L (46-171); MB/CK RELATIVE INDEX 2.31 (< OR =4)
[2025-06-04] MEDS: EPINEPHrine INJ 1 MG/ML 1ML AMP IM STA (09:34)
[2025-06-04] MEDS ORDERED: METH-1100 PO (09:37)
[2025-06-04] MEDS ORDERED: LOSA25TA13 PO (09:37)
[2025-06-04] MEDS ORDERED: ROPI5TAB19 PO (09:40)
[2025-06-04 09:41] LABS: KETONE, URINE AUTO RFX NEGATIVE (NEGATIVE); LEUKOCYTE ESTERASE UR AUTO RFX NEGATIVE (NEGATIVE); NITRITE, URINE AUTO RFX NEGATIVE (NEGATIVE); RBC, URINE AUTO RFX 21 /HPF (0-3); SQUAM EPITHELIAL CELL UR AURFX 2 /HPF (0-6)
[2025-06-04 09:44] LABS: WBC, URINE AUTO RFX 24 /HPF (0-3)
[2025-06-04] MEDS ORDERED: HOME MED LIST COMPLETE! XX SCH (09:45)
[2025-06-04 10:13] LABS: CK-MB VALUE MASS 1.9 NG/ML (<3.6)
[2025-06-04 10:16] LABS: CPK CREATINE PHOSPHOKINASE 84.0 U/L (46-171); MB/CK RELATIVE INDEX 2.26 (< OR =4)
[2025-06-04 11:55] LABS: CK-MB VALUE MASS 2.0 NG/ML (<3.6); CPK CREATINE PHOSPHOKINASE 73.0 U/L (46-171); MB/CK RELATIVE INDEX 2.73 (< OR =4)
[2025-06-04] MEDS ORDERED: rOPINIRole 0.25 MG TAB PO PRN (14:05)
[2025-06-04 15:24] VITALS: BP 120/71; TEMP 97.6; O2SAT 96
[2025-06-04 19:47] VITALS: BP 126/66; TEMP 97.7; O2SAT 97
[2025-06-04 20:00] VITALS: BP 126/66; TEMP 97.9; O2SAT 97
[2025-06-04] MEDS: FINASTERIDE 5 MG TAB PO SCH (20:53)
[2025-06-04] MEDS: HEPARIN SOD 5000 UNITS/ML 1 ML VIAL/SYRINGE SQ SCH (20:53)
[2025-06-04] MEDS: METHENAMINE HIPPURATE 1 GM TABLET PO SCH (20:53)
[2025-06-04] MEDS: ATORVASTATIN 20 MG TAB PO SCH (20:53)
[2025-06-04 23:04] VITALS: BP 122/71; TEMP 97.9; O2SAT 96
[2025-06-05 03:11] VITALS: BP 116/61; TEMP 98.1; O2SAT 91
[2025-06-05 04:00] VITALS: BP 116/61; TEMP 98.1; O2SAT 91
[2025-06-05 05:37] LABS: PLATELET COUNT, AUTOMATED 245 10^3/uL (150-450)
[2025-06-05 06:03] LABS: CALCIUM LEVEL 8.6 MG/DL (8.3-10.6); CARBON DIOXIDE LEVEL 22.0 MMOL/L (20-31); CHLORIDE LEVEL 107.0 MMOL/L (98-107); CREATININE FOR GFR 1.29 MG/DL (0.70-1.30); GLOMERULAR FILTRATION RATE 54.0 (>35); POTASSIUM SERUM 4.4 MMOL/L (3.5-5.1); SODIUM LEVEL 140.0 MMOL/L (136-145)
[2025-06-05 06:50] VITALS: BP 136/75; TEMP 97.7; O2SAT 98
[2025-06-05 09:39] VITALS: BP 120/62
[2025-06-05 09:43] VITALS: BP 120/62
[2025-06-05] MEDS: LOSARTAN 25 MG TAB PO SCH (09:43)
[2025-06-05] MEDS: INDAPAMIDE 1.25 MG TABLET PO SCH (09:43)
[2025-06-05] MEDS ORDERED: PRED20TA PO (11:23)
[2025-06-05] MEDS ORDERED: PANT40TA29 PO (11:23)
[2025-06-05] MEDS: FLUZONE HIGH DOSE TRI (25-26) 0.5 ML SYRINGE IM.IMMUN ONE (12:17)
== END 2025-06-05 14:06 | disposition home or self-care (01) ==
LOC: M ED 07:35 → M ED INP 07:36 → M PCU 15:30
PROVIDERS: ADMIT Internal Medicine; ATTEND Internal Medicine
DX: T78.3XXA Angioneurotic edema, initial encounter (principal); R07.89 Other chest pain; I50.32 Chronic diastolic (congestive) heart failure; I11.0 Hypertensive heart disease with heart failure; N18.30 Chronic kidney disease, stage 3 unspecified; Z23 Encounter for immunization; N40.0 Benign prostatic hyperplasia without lower urinary tract symptoms; G25.81 Restless legs syndrome; Z87.440 Personal history of urinary (tract) infections; Z79.899 Other long term (current) drug therapy; Z79.52 Long term (current) use of systemic steroids
CPT/HCPCS: 36415; 71045; 71275; 74174; 80047; 80048; 80076; 81001; 82550; 82553; 83690; 83880; 84439; 84443; 84484; 85025; 85027; 85610; 85730; 87086; 87486; 87581; 87633; 87798; 90662; 92610; 93005; 93041; 94760; 96365; 96372; 96375; 96376; 99285; G0008; G0378; J0166; J1200; J1308; J2405; J2919; J3010; Q9967

== ENCOUNTER → 2025-07-09 | Outpatient (REF) | payer MEDICARE, BC ==
[~2025-07-09] MED LIST changes: +LOSA25TA13 PO; +METH-1100 PO; +PANT40TA29 PO; +PRED20TA PO; +ROPI5TAB19 PO
[2025-07-09 18:13] LABS: CALCIUM LEVEL 9.3 MG/DL (8.3-10.6); CARBON DIOXIDE LEVEL 22.0 MMOL/L (20-31); CHLORIDE LEVEL 109.0 MMOL/L (98-107); CREATININE FOR GFR 1.25 MG/DL (0.70-1.30); GLOMERULAR FILTRATION RATE 56.1 (>35); POTASSIUM SERUM 3.9 MMOL/L (3.5-5.1); SODIUM LEVEL 146.0 MMOL/L (136-145)
[2025-07-09 18:16] LABS: PLATELET COUNT, AUTOMATED 293 10^3/uL (150-450)
== END ==
LOC: M LABDRAWC 17:18
PROVIDERS: ATTEND Physician Assistant
DX: R07.2 Precordial pain (principal); I50.32 Chronic diastolic (congestive) heart failure

== ENCOUNTER → 2025-07-09 | Outpatient (REF) | payer MEDICARE, BC ==
[2025-07-09 18:15] LABS: ALT/SGPT 18.0 U/L (7.0-40); AST/SGOT 24.0 U/L (<34); CALCIUM LEVEL 9.3 MG/DL (8.3-10.6); CARBON DIOXIDE LEVEL 22.0 MMOL/L (20-31); CHLORIDE LEVEL 109.0 MMOL/L (98-107); CHOLESTEROL LEVEL 163.0 MG/DL (<200); CHOLESTEROL RISK RATIO 2.83 (<5); CREATININE FOR GFR 1.26 MG/DL (0.70-1.30); GLOMERULAR FILTRATION RATE 55.6 (>35); LDL CHOLESTEROL 82.7 MG/DL (<100); NON-HDL-C 105.5 MG/DL; POTASSIUM SERUM 3.9 MMOL/L (3.5-5.1); SODIUM LEVEL 146.0 MMOL/L (136-145); TRIGLYCERIDES LEVEL 114.0 MG/DL (<150)
[2025-07-09 18:38] LABS: ESTIMATED AVERAGE GLUCOSE 137.0 MG/DL (60-110)
== END ==
LOC: M SFHCCLAY 11:44
PROVIDERS: ATTEND Physician Assistant
DX: N39.0 Urinary tract infection, site not specified (principal); R73.03 Prediabetes; K76.0 Fatty (change of) liver, not elsewhere classified; E78.2 Mixed hyperlipidemia; I11.0 Hypertensive heart disease with heart failure; G25.81 Restless legs syndrome; M10.9 Gout, unspecified; N40.2 Nodular prostate without lower urinary tract symptoms; N28.1 Cyst of kidney, acquired; M17.12 Unilateral primary osteoarthritis, left knee; M79.2 Neuralgia and neuritis, unspecified

== ENCOUNTER 2025-08-22 17:22 | Emergency (ER) | payer MEDICARE, BC ==
[~2025-08-22] VITALS: Ht 203.2 cm; Wt 90.0 kg
[2025-08-22 18:32] LABS: BASO # 0.0 10^3/uL (0.0-0.2); BASO % 0.2 % (0.0-1.0); EOS # 0.4 10^3/uL (0.0-0.5); EOS % 3.1 % (0.0-3.0); LYMPH # 1.2 10^3/uL (1.5-5.0); LYMPH % 10.0 % (24.0-44.0); MONO # 1.0 10^3/uL (0.0-0.8); MONO % 8.9 % (2.0-8.0); NEUTROPHILS # 9.0 10^3/uL (1.5-8.5); NEUTROPHILS % 76.5 % (36.0-66.0); PLATELET COUNT, AUTOMATED 351 10^3/uL (150-450)
[2025-08-22 19:00] LABS: INR 1.36
[2025-08-22 19:03] LABS: ALT/SGPT 22.0 U/L (7.0-40); AST/SGOT 56.0 U/L (<34); CALCIUM LEVEL 8.5 MG/DL (8.3-10.6); CARBON DIOXIDE LEVEL 22.0 MMOL/L (20-31); CHLORIDE LEVEL 107.0 MMOL/L (98-107); CREATININE FOR GFR 1.18 MG/DL (0.70-1.30); GLOMERULAR FILTRATION RATE 60.1 (>35); POTASSIUM SERUM 4.2 MMOL/L (3.5-5.1); SODIUM LEVEL 143.0 MMOL/L (136-145)
[2025-08-22 20:22] VITALS: BP 126/64; TEMP 97.4; O2SAT 94
== END 2025-08-22 20:28 | disposition home or self-care (01) ==
LOC: M ED 17:22
DX: T88.7XXA Unspecified adverse effect of drug or medicament, initial encounter (principal); I25.10 Atherosclerotic heart disease of native coronary artery without angina pectoris; I11.0 Hypertensive heart disease with heart failure; Z98.61 Coronary angioplasty status; Z79.01 Long term (current) use of anticoagulants; Z79.899 Other long term (current) drug therapy; Z88.1 Allergy status to other antibiotic agents; Z88.8 Allergy status to other drugs, medicaments and biological substances; Z88.2 Allergy status to sulfonamides; Z91.041 Radiographic dye allergy status